=== PATIENT | female | born 1965 | race Two or more races ===

== ENCOUNTER 2020-06-15 08:00 | Inpatient (IN) | payer OTHER ==
[~2020-06-15] VITALS: Ht 167.6 cm; Wt 99.8 kg
[2020-06-15] MEDS ORDERED: CLONAZEPAM2 M1 PO (10:31)
[2020-06-15] MEDS ORDERED: WELLBUTRIN SR150 MG PO (10:31)
[2020-06-15] MEDS ORDERED: QUETIAPINE FUM400 M1 PO (10:32)
[2020-06-15] MEDS ORDERED: TRAM1TAB98 PO (10:32)
[2020-06-15] MEDS ORDERED: DIOVAN160 M1 PO (10:34)
[2020-06-15] MEDS ORDERED: ZORVOLEX18 MG PO (10:34)
[2020-06-22] MEDS ORDERED: DICLOFENAC POTA50 MG (10:21)
[2020-06-24] MEDS ORDERED: OXYC1TAB9 PO (06:36)
[2020-06-24] MEDS ORDERED: BACTRIM DS TAB1 EACH PO (06:36)
[2020-06-24] MEDS ORDERED: INTEGRA PLUS C1 EACH PO (06:36)
[2020-06-24] MEDS ORDERED: XARELTO10 MG PO (06:36)
== END 2020-06-24 15:05 | DRG 470 ==
LOC: SURH 06-22 08:00 → O/R 06-22 08:27 → SURH 06-22 14:30
PROVIDERS: ADMIT Orthopaedic Surgery Sports Medicine; ATTEND Orthopaedic Surgery Sports Medicine
PROC: 0SRD0J9 Replacement of Left Knee Joint with Synthetic Substitute, Cemented, Open Approach (ICD-10-PCS; principal; 2020-06-22 14:30)
DX: M17.12 Unilateral primary osteoarthritis, left knee (principal); I10 Essential (primary) hypertension; F32.9 Major depressive disorder, single episode, unspecified; Z20.828 Contact with and (suspected) exposure to other viral communicable diseases